=== PATIENT | male | born 1985 | race Caucasian/White ===

== ENCOUNTER 2017-03-26 06:16 | Emergency (ER) | payer OTHER ==
[~2017-03-26] VITALS: Ht 177.8 cm; Wt 136.1 kg
[~2017-03-26 06:16] MED LIST: LISINOPRIL20 MG PO; MEDROLDOSEPACK PO; NORCO 5-325 TA1 EACH PO; PROPRANOLOL 1010 MG PO; PROPRANOLOL 8080 MG PO
[2017-03-26 06:53] VITALS: BP 150/102
[2017-03-26] MEDS ORDERED: NORCO 5-325 TA1 EACH PO (07:01)
[2017-03-26] MEDS ORDERED: NAPROSYN500 MG PO (07:01)
== END 2017-03-26 07:18 | disposition home or self-care (01) ==
LOC: ER 06:16
DX: R51 Headache (principal); M54.5 Low back pain; Z88.8 Allergy status to other drugs, medicaments and biological substances